=== PATIENT | male | born 1955 | race Caucasian/White ===

== ENCOUNTER 2017-03-04 08:05 | Day surgery (SDC) | payer BC ==
[~2017-03-04] VITALS: Ht 188 cm; Wt 111.9 kg
--- NOTE | 2017-03-29 13:26 | OR ---
ADMIT: 03/04/2017 RM/LOC: [facility] MR#: [id number] [id number] [place] [address] [place] [id number] Operative/Delivery Room Report SEX: M AGE: 61 : 1955 SURGERY DATE: 03/04/2017 SURGEON: Hilario Velazco MD PREOPERATIVE DIAGNOSIS: Melanoma, dorsal aspect of left forearm. POSTOPERATIVE DIAGNOSIS: Melanoma, dorsal aspect of left forearm. FINAL PATHOLOGY: Pending. PROCEDURES: 1. Injection of Lymphazurin. 2. Identification of sentinel node, left axillary sentinel node biopsy. 3. Wide local excision, 5 x 2.5 cm excision left forearm. ANESTHESIA: General anesthesia. ESTIMATED BLOOD LOSS: 10 mL or less. SPECIMEN: 1. [place] node. 2. Wide local excision of the dorsal aspect of left forearm to Pathology. INDICATION FOR PROCEDURE: Please see H and P. PROCEDURE IN DETAIL: After the risks, benefits, possible complications, and the alternatives have been explained, and informed consent had been obtained, the patient was taken back to the operating room, underwent general anesthesia. He had already had injection of radio-labeled tracer per Radiology. I came in as he was just getting off to sleep and injected the Lymphazurin, massaged for 3 minutes, went and scrubbed. Surgical field was prepped and draped in a sterile manner. A hot sentinel node in left axilla. I made an incision down through skin and subcutaneous tissue, could see a blue ADMIT: 03/04/2017 RM/LOC: [facility] MR#: [id number] [address] [place] [address] [place] [address] Operative/Delivery Room Report SEX: M AGE: 61 : 1955 lymphatic coming up to this lymph node, it had not really gotten all that blue at this point, but it was definitely hot. It had a count of about 6400 and once it was removed, there were really no other lymph nodes in the left axilla that had any signal whatsoever. That node was sent as left axillary sentinel node. I irrigated out with sterile water, closed with 3-0 Vicryl and 4-0 Monocryl. Once that was done, I marked out the area of the dorsal aspect of left arm, trying to make sure I got at least a cm margin around this lesion, full thickness skin, was 5 x 2.5 cm excision. Like I said, full thickness skin done sharply, maintained hemostasis with electrocautery, then closed with 3-0 Vicryl and 4-0 nylon. He tolerated the procedure well, was being extubated when I left the room, was in stable and satisfactory condition with all needle and lap counts correct x2. Hilario Velazco MD/ dhaval JOB #: [id number] CC: Hilario Velazco, Attending Physician Rufina Parker, Family Physician
== END 2017-03-04 13:30 | disposition home or self-care (01) ==
LOC: SSS 08:05
DX: C43.62 Malignant melanoma of left upper limb, including shoulder (principal); L57.0 Actinic keratosis; Z98.890 Other specified postprocedural states; Z79.899 Other long term (current) drug therapy